=== PATIENT | female | born 1965 | race Hispanic/Latino ===

== ENCOUNTER → 2025-01-20 | Day surgery (SDC) | payer MEDICARE ==
[~2025-01-20] MED LIST: ACETAMINOPHEN 1000 MG/100 ML 100 ML IV ONE; ACETAMINOPHEN 1000 MG/100 ML IV PRN; ASPIRIN 325 MG TAB PO SCH; ASPIRIN81 MG PO; CELEBREX200 MG PO; CELECOXIB 100 MG CAP PO SCH; CRESTOR40 MG PO; DIPHENHYDRAMINE HCL INJ 50 MG/ML VIAL IV PRN; DOCUSATE SODIUM 100 MG CAP PO PRN; FAMOTIDINE 20 MG/2 ML VIAL IV ONE; FENTANYL CITRATE/PF 100MCG/2 ML INJ ONE; HYDROCODONE/APAP 5MG-325MG TAB PO PRN; HYDROCODONE/APAP 7.5MG-325MG 1 EA TAB PO PRN; LIDOCAINE HCL 2% LOCAL INJ 5 ML SDV VIAL INJ ONE; LISINOPRIL-HCT1 EACH PO; METFORMIN HCL500 MG PO; MIDAZOLAM HCL 2 MG/2 ML VIAL ONE; ONDANSETRON HCL INJ 2MG/ML 2ML 2 MG/ML VIAL IV PRN; ONDANSETRON HCL INJ 2MG/ML 2ML 2 MG/ML VIAL ONE; PROPOFOL IV EMULSION 10 MG/ML 20 ML VIAL ONE; ROCURONIUM BROMIDE 1 ML IV ONE; ROPIVACAINE/EPI/CLONIDINE/KET 50 ML SYRINGE INJ ONE; SEVOFLURANE INHAL SOLN 250 ML PEN BTL ONE; SODIUM CHLORIDE 0.9% 1000ML 1,000 ML IV SCH; SUCCINYLCHOLINE CHLORIDE 20 MG/ML 10ML VIAL ONE; SUGAMMADEX SODIUM 200 MG/2 ML VIAL IV ONE; VITAMIN D250 MCG PO
[2025-01-20] MEDS: GABAPENTIN 300 MG CAP ONE (06:45)
[2025-01-20] MEDS: CELECOXIB 200 MG CAP ONE (06:45)
[2025-01-20] MEDS: DEXAMETHASONE SOD PHOS 10 MG/1 ML VIAL ONE (06:45)
[2025-01-20] MEDS: LACTATED RINGER'S 1,000 ML ONE (06:59)
[2025-01-20] MEDS: CEFAZOLIN SODIUM 2 GM ONE (07:00)
[2025-01-20 13:40] VITALS: BP 122/77; PULSE 97; RESP 16; O2SAT 98
[2025-01-20] MEDS: HYDROCODONE/APAP 5MG-325MG TAB ONE (13:50)
== END | disposition home health service (06) ==
LOC: OR 06:16
PROVIDERS: ATTEND Specialist
DX: M16.12 Unilateral primary osteoarthritis, left hip (principal); Z96.641 Presence of right artificial hip joint; E66.01 Morbid (severe) obesity due to excess calories; E11.9 Type 2 diabetes mellitus without complications; I10 Essential (primary) hypertension; E78.5 Hyperlipidemia, unspecified; Z01.812 Encounter for preprocedural laboratory examination; Z79.84 Long term (current) use of oral hypoglycemic drugs; Z79.899 Other long term (current) drug therapy; Z68.38 Body mass index [BMI] 38.0-38.9, adult
CPT/HCPCS: 27130; 36415; 72170; 82948; 86850; 86900; 97116; 97162; 97530; C1713 ×3; C1776 ×2; J0131; J1100; J1308; J2003; J2250; J2405; J2704; J3010; J7121; J0330